=== PATIENT | male | born 1950 | race African-American/Black ===

== ENCOUNTER 2017-08-03 15:27 | Emergency (ER) | payer OTHER ==
[~2017-08-03] VITALS: Ht 188 cm; Wt 84.5 kg
[2017-08-03 16:19] VITALS: BP 161/101
[2017-08-03] MEDS ORDERED: PERTUSS(ACELL),DIPH,TET VAC/PF 0.5 ML VIAL IM ONE (16:45)
== END 2017-08-03 18:25 | disposition home or self-care (01) ==
LOC: EMS 15:29
DX: S01.01XA Laceration without foreign body of scalp, initial encounter (principal); F12.10 Cannabis abuse, uncomplicated; Z72.89 Other problems related to lifestyle; Y08.09XA Assault by strike by other specified type of sport equipment, initial encounter; Y93.89 Activity, other specified; Y92.89 Other specified places as the place of occurrence of the external cause; Y99.8 Other external cause status
CPT/HCPCS: 12002; 70450; 90471; 90715; 99284